=== PATIENT | male | born 1970 | race Caucasian/White ===

== ENCOUNTER → 2021-10-31 15:34 | Outpatient (CLI) | payer BC, SELFPAY | PROVIDERS: Visit Provider Urology | DX: Z01.812 Encounter for preprocedural laboratory examination (principal); Z11.52 Encounter for screening for COVID-19; Z85.51 Personal history of malignant neoplasm of bladder | CPT/HCPCS: C9803; U0003; U0005 ==

== ENCOUNTER 2021-11-02 09:36 | Day surgery (SDC) | payer BC, SELFPAY ==
[2021-11-02 11:30] VITALS: BP 141/90; PULSE 98; RESP 18; TEMP 37.1; O2SAT 98; BMI 25.1
[2021-11-02 12:30] VITALS: BP 155/95; PULSE 92; RESP 18; TEMP 36.7; O2SAT 98
[2021-11-02 12:39] VITALS: BP 155/95; PULSE 92; RESP 18; O2SAT 98
--- NOTE | 2021-11-02 13:11 | [facility].OPNOTE ---
Date of procedure: 11/02/21 Pre-op Diagnosis:: History of bladder cancer Post-op Diagnosis:: No recurrence of bladder cancer noted today Procedure performed:: Surveillance cystoscopy Surgeon:: Jonathan Pretty MD Anesthesia: local Estimated blood loss (mL): 0 Clinical Note:: 51-year-old white male with a history of bladder cancer who previously followed with Dr. Dhaliwal in [place]. Patient's last cystoscopy was in 2018. He presents today for surveillance cystoscopy. Operative findings:: No evidence of bladder tumor recurrence Operative note:: Patient taken to the cystoscopy suite after informed consent was obtained. On the stretcher he was prepped and draped in the standard surgical fashion and 2% lidocaine placed into the urethra. After 5 minutes the flexible cystoscope introduced into urethra meatus and passed to the prostatic urethra showed some mild hyperplasia. The bladder was entered and examined in a systematic fashion. There is no evidence of recurrent bladder tumors or mucosal abnormalities. There is no evidence of trabeculation, cellules, diverticula or stones. The ureteral orifices in their normal anatomic position with clear efflux of urine. Scope was retroflexed showing no evidence of a median lobe and no bladder neck abnormalities. Scope removed and patient tolerated procedure well. We discussed findings and we will see him back in 1 year with cystoscopy. Condition: stable Disposition: same day Specimens:: None Complications:: None
== END 2021-11-02 12:39 | disposition home or self-care (01) ==
LOC: OUTP 09:40
PROVIDERS: Visit Provider Urology
PROC: (CPT 52000; principal; 2021-11-02 12:15)
DX: Z08 Encounter for follow-up examination after completed treatment for malignant neoplasm (principal); Z85.51 Personal history of malignant neoplasm of bladder; Z79.899 Other long term (current) drug therapy
CPT/HCPCS: 52000